=== PATIENT | male | born 1980 | race American Indian/Alaskan Native ===

== ENCOUNTER 2016-11-12 10:19 | Emergency (ER) | payer SELFPAY ==
[2016-11-12 10:36] VITALS: BP 147/89
--- NOTE | 2016-11-12 10:43 | UC ---
Lower Extremity/Ankle HPI - HPI Summary HPI Summary: complaint of chronic right leg ulcerations and cellulitis right ulceration and redness that started 3-4 days ago 2 days foot became more painful- resting foot lessens pain feels slightly swollen and hot many ulcers on leg with red area aroungd them denies leg pain seen by PCP Sandrine Bolton several months ago for same problem denies fever and chills hx of venous insuffuciency- surgery on right leg - 10 years ago varicosities hx of fungal infections on his feet no PCP at this time- but has warehouse specialist at [facility] and has appt next week - History of Current Complaint Chief Complaint: UCLowerExtremity Stated Complaint: WOUND ON FOOT Time Seen by Provider: 11/12/16 10:37 Hx Obtained From: Patient - Allergies/Home Medications Allergies/Adverse Reactions: Allergies Allergy/AdvReac Type Severity Reaction Status Date / Time Aspirin Allergy Difficulty Verified 11/12/16 10:29 Breathing Penicillins [PCN] Allergy Difficulty Verified 11/12/16 10:29 Breathing Home Medications: Home Medications Lisinopril/HCTZ (NF) [Zestoretic (NF)] 1 tab PO DAILY 11/12/16 [ History Confirmed 11/12/16] PMH/Surg Hx/FS Hx/Imm Hx Previously Healthy: No - venous insuffuciency BLL Endocrine History Of: Denies: Diabetes, Thyroid Disease Cardiovascular History Of: Reports: Hypertension Denies: Cardiac Disorders Respiratory History Of: Reports: Asthma Denies: COPD GI/ History Of: Denies: Ulcer - Surgical History Surgical History: Yes Surgery Procedure, Year, and Place: Vein stripping rachana lower ext - Family History Known Family History: Positive: Cardiac Disease - mother, Hypertension - mother , Diabetes - mother - Social History Occupation: Employed Full-time Lives: With Family Alcohol Use: Daily Substance Use Type: None Smoking Status (MU): Former Smoker - Immunization History Most Recent Influenza Vaccination: doesn't get Review of Systems Constitutional: Negative Skin: Other - RLE - ulceration Eyes: Negative ENT: Negative Respiratory: Negative Cardiovascular: Negative Gastrointestinal: Negative Genitourinary: Negative Motor: Negative Neurovascular: Negative Musculoskeletal: Negative Neurological: Negative Psychological: Negative All Other Systems Reviewed And Are Negative: Yes Physical Exam Triage Information Reviewed: Yes Appearance: No Pain Distress, Well-Nourished Vital Signs: Initial Vital Signs Temp 98.6 F 11/12/16 10:30 Pulse 78 11/12/16 10:30 Resp 18 11/12/16 10:30 BP 147/89 11/12/16 10:30 Pulse Ox 98 11/12/16 10:30 Vital Signs Reviewed: Yes Eyes: Positive: Conjunctiva Clear ENT: Positive: Pharynx normal. Negative: Nasal congestion Neck: Positive: No Lymphadenopathy Respiratory: Positive: Lungs clear, Normal breath sounds, No respiratory distress, No accessory muscle use Cardiovascular: Positive: RRR, No Murmur, Pulses Normal, Brisk Capillary Refill Abdomen Description: Positive: Nontender, Soft Bowel Sounds: Positive: Present Musculoskeletal: Positive: No Edema Neurological: Positive: Alert Psychological Exam: Normal Skin: Positive: Other - RLL- foot with 2x2cm area of erythema sourrounding tiny abrasion RLL flanagan - several ulcerations on flanagan surrounded by erythemaous area warm to touch 5x7cm Lower Extremity Course/Dx - Course Course Of Treatment: exam completed. will treat for cellulits - has followup next week with warehouse specialist at [facility] - Differential Dx/Diagnosis Differential Diagnosis/HQI/PQRI: Cellulitis, Other - ulceration -venous Provider Diagnoses: Cellulitis- RLL Discharge - Discharge Plan Condition: Stable Disposition: HOME Prescriptions: Mupirocin 2% OINT* [Bactroban 2 % Oint*] 1 applic TOPICAL BID #1 tube Sulfamethox/Trimethoprim DS* [Bactrim DS 800/160 TAB*] 1 tab PO BID #14 tab Patient Education Materials: Cellulitis (ED) Referrals: Isai Hazel MD [Primary Care Provider] - Additional Instructions: CELLULITIS What is Cellulitis? Cellulitis is a bacterial infection of the skin and, sometimes, of the tissues beneath the skin. The skin normally has many types of bacteria on it, but intact skin is an effective barrier that keeps bacteria from entering and growing within the body. When there is a break in the skin, bacteria can enter the body and grow there, causing infection. The infection usually affects outer layers of the skin first, and then spreads deeper into body tissues. Cellulitis can affect any area of the body covered by skin, but it is most common on the face or lower part of the legs. Start antibiotic as directed Increase fluids and rest please have your cellulitis checked in 2 days or sooner if redness goes outside the marker line or pain increases or you get a fever Take acetaminophen or ibuprofen for fever or pain Please review your discharge instructions. If your symptoms do not improve please call your primary care provider or return to urgent care Symptoms Might Include: Skin redness that increases in size as the infection spreads Tight, glossy, "stretched" appearance of the skin Pain or tenderness of the area The affected area may be warm or hot to the touch A thin red line (along a vein) from the cellulitis toward the heart Fever Chills, shaking Muscle aches pains Joint stiffness because of swelling around a joint Treatment Recommendations: The healthcare provider may have prescribed an antibiotic medicine. The medicine should be taken until it is completely gone, even if you are feeling better. If you stop taking the medicine early, the infection may not be completely gone, and the medication may not work the next time. If the infection is on your arm or leg, keep it elevated. You may use warm, wet compresses to relieve the pain and help healing. Soak a clean cloth in warm water, wring it ut a little, and apply it to the affected site. Leave the soak in place for 15 minutes and repeat often throughout the day. Rest until the fever is gone and the pain and redness have lessened. You may take ibuprofen (Motrin, Advil), or acetaminophen (Tylenol) for pain. These will help ease some of the symptoms but will not cure the infection. Call Your Doctor or Return Here IF: Your fever does not go down with treatment, or it increases to more than 101 F. You are not starting to get better with the treatment within 24 to 36 hours. You have increasing pain, swelling, or chills. You feel drowsy and lethargic, or you have vomiting or diarrhea. You find the redness is spreading or there are red streaks coming from the infected area. The joint or bone under the infected skin becomes painful after the skin has started to heal. You have any new symptoms that worry you.
== END 2016-11-12 11:09 | disposition home or self-care (01) ==
LOC: UCEAST 10:19
DX: L03.115 Cellulitis of right lower limb (principal); Z88.6 Allergy status to analgesic agent; Z88.0 Allergy status to penicillin; I87.2 Venous insufficiency (chronic) (peripheral); Z87.891 Personal history of nicotine dependence
CPT/HCPCS: 99212; G0463